=== PATIENT | male | born 1995 | race Caucasian/White ===

== ENCOUNTER 2020-01-09 02:21 | Emergency (ER) | payer SELFPAY ==
[2020-01-09] MEDS ORDERED: Bacitracin Oint 1 GM U/D Packet TOP ONE (02:36)
[2020-01-09] MEDS ORDERED: Diphtheria,Pertussis(Acell),Tetanus Vaccine 0.5 ML SDV IM ONE (02:36)
--- NOTE | 2020-01-09 02:42 | EDM.PDOCBH ---
ED HPI GENERAL MEDICAL PROBLEM - General Chief Complaint: Drug or Alcohol Abuse Stated Complaint: [facility] Time Seen by Provider: 01/09/20 02:30 Source of Information: Reports: Patient, EMS, Police History Limitations: Reports: No Limitations - History of Present Illness INITIAL COMMENTS - FREE TEXT/NARRATIVE: 24-year-old male tried marijuana for the first time tonight and it caused some type of delusional violent reaction. He was crashing things and breaking things at the house, was even bit on the ankle by their dog who was getting defensive. He has a small puncture wound on the inside of his right ankle, he also has a small puncture wound under the little toe of the left foot from a piece of glass. Otherwise superficial abrasions on his arms and hands. He has significantly calmed down since he got here, in fact he is thinking clearly now and is not causing any problems. He has a history of anxiety but is on no medications. 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: Other (see below) Other Treatments VERTICAL MILL OPERATOR: none - Related Data Allergies Allergy/AdvReac Type Severity Reaction Status Date / Time Penicillins Allergy Cannot Verified 01/09/20 02:28 Remember Home Meds: Home Meds NK [No Known Home Meds] 01/09/20 [History] ED ROS GENERAL - Review of Systems Review Of Systems: See Below Constitutional: Denies: Fever, Chills Respiratory: Denies: Shortness of Breath Cardiovascular: Denies: Chest Pain GI/Abdominal: Denies: Abdominal Pain, Nausea, Vomiting Neurological: Denies: Headache Psychiatric: Reports: Anxiety ED EXAM, BEHAVIORAL HEALTH - Physical Exam Exam: See Below Exam Limited By: Other (Patient is now thinking clearly, answering questions appropriately) General Appearance: Alert, No Apparent Distress Eye Exam: Bilateral Eye: EOMI Head: Atraumatic Neck: Supple, Non-Tender Respiratory/Chest: Lungs Clear Cardiovascular: Regular Rate, Rhythm, Tachycardia Extremities: Other (Small puncture wound on the inner aspect of the right ankle , small puncture wound under the small toe of the left foot, scattered abrasions on the arms and hands. No bony tenderness or deformities) Neurological: Alert, Oriented x 3 (Now oriented) COURSE, BEHAVIORAL HEALTH COMP - Course Vital Signs: Last Vital Signs Temp 98.5 F 01/09/20 02:43 Pulse 1 L 01/09/20 02:43 Resp 16 01/09/20 02:43 BP 125/55 L 01/09/20 02:43 Pulse Ox 96 01/09/20 02:43 Orders, Labs, Meds: Active Orders 24 hr Category Date Time Status Vaccines to be Administered [RC] PER UNIT ROUTINE Care 01/09/20 02:36 Active Medications Discontinued Medications Generic Name Dose Route Start Last Admin Trade Name Emily PRN Reason Stop Dose Admin Bacitracin 1 dose 01/09/20 02:36 01/09/20 02:48 Bacitracin Oint 1 Gm TOP 01/09/20 02:37 1 dose ONETIME ONE Administration Diphtheria/Tetanus/Acell Pertussis 0.5 ml 01/09/20 02:36 01/09/20 02:48 Adacel IM 01/09/20 02:37 0.5 ml .ONCE ONE Administration Re-Assessment/Re-Exam: Patient needs a tetanus vaccination which was given. A small amount of bacitracin was applied to the puncture wounds with bandages, and because it was an animal bite he was put on clindamycin 3 times a day for the next 5 days. Encouraged to keep the wounds clear and avoid marijuana in the future. 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 Avoid marijuana in the future. Sepsis Event Note - Focused Exam Vital Signs: Vital Signs Temp Pulse Resp BP Pulse Ox 01/09/20 02:43 98.5 F 1 L 16 125/55 L 96 01/09/20 02:32 98.5 F 133 H 16 125/55 L 96 Date Exam was Performed: 01/09/20 Time Exam was Performed: 03:49 - My Orders Last 24 Hours: My Active Orders 01/09/20 02:36 Vaccines to be Administered [RC] PER UNIT ROUTINE - Assessment/Plan Last 24 Hours: My Active Orders 01/09/20 02:36 Vaccines to be Administered [RC] PER UNIT ROUTINE
== END 2020-01-09 02:57 | disposition home or self-care (01) ==
LOC: JP.ED 02:21
DX: F19.950 Other psychoactive substance use, unspecified with psychoactive substance-induced psychotic disorder with delusions (principal); Z88.0 Allergy status to penicillin
CPT/HCPCS: 90471; 90715; 99285